=== PATIENT | male | born 1940 | race Caucasian/White ===

== ENCOUNTER 2019-12-29 08:31 | Outpatient (CLI) | payer OTHER | END 2019-12-29 08:35 | disposition home or self-care (01) | LOC: RAD 08:31 | DX: R10.13 Epigastric pain (principal); R11.0 Nausea; R11.2 Nausea with vomiting, unspecified ==

== ENCOUNTER 2021-01-31 09:25 | Outpatient (CLI) | payer OTHER | END 2021-01-31 10:11 | disposition home or self-care (01) | LOC: OFIC 805 09:25 | PROVIDERS: ATTEND Otolaryngology Otology & Neurotology | DX: H60.8X2 Other otitis externa, left ear (principal); H61.23 Impacted cerumen, bilateral; H90.3 Sensorineural hearing loss, bilateral ==

== ENCOUNTER 2022-12-05 07:36 | Outpatient (CLI) | payer OTHER | END 2022-12-05 07:42 | disposition home or self-care (01) | LOC: SONOGRAMA 07:36 | DX: R10.13 Epigastric pain (principal); R11.0 Nausea; K62.5 Hemorrhage of anus and rectum; K62.89 Other specified diseases of anus and rectum; R19.7 Diarrhea, unspecified; R19.4 Change in bowel habit ==

== ENCOUNTER → 2022-12-12 | Outpatient (CLI) | payer OTHER | END | disposition home or self-care (01) | LOC: SONOGRAMA 08:06 | PROVIDERS: ATTEND Internal Medicine Gastroenterology | DX: R10.13 Epigastric pain (principal); R11.0 Nausea; K62.5 Hemorrhage of anus and rectum; K62.89 Other specified diseases of anus and rectum; R19.7 Diarrhea, unspecified; R19.4 Change in bowel habit ==